=== PATIENT | female | born 1940 | race Caucasian/White ===

== ENCOUNTER → 2017-01-24 | Outpatient (CLI) | payer MEDICARE ==
[~2017-01-24] MED LIST: ASCO100037 PO; B-COCAP5 PO; CALC-127 PO; CHOL1CAP6 PO; CHRO1CAP7 PO; CODCAP9 PO; ESTR.3 PO; GLUC1CAP16 PO; HYDR-3535 PO; MILK200C2 PO; NAPR220C22 PO; OMEP20TA PO; PERF25TA PO; TURM500C4 PO; VITA-136 PO
== END ==
LOC: CPRE 11:56
PROVIDERS: ATTEND Neurological Surgery
DX: Z01.818 Encounter for other preprocedural examination (principal); M43.16 Spondylolisthesis, lumbar region; M51.16 Intervertebral disc disorders with radiculopathy, lumbar region; M12.88 Other specific arthropathies, not elsewhere classified, other specified site; M48.06 Spinal stenosis, lumbar region; M51.36 Other intervertebral disc degeneration, lumbar region

== ENCOUNTER → 2017-01-26 | Day surgery (SDC) | payer MEDICARE ==
--- NOTE | 2017-01-25 13:43 | MH ---
cc: ANNE-MARIE CLEMENTS M.D., ROHIT K. M.D. DATE OF ADMISSION: 01/26/2017 ADMISSION DIAGNOSIS Lumbar spinal stenosis. HISTORY OF PRESENT ILLNESS This is a 76-year-old female who we initially saw in June 2014 when she presented for an evaluation of left knee paresthesias and occasional electrical sensation in the left anterior leg since 2013. She also had at that time right leg pain and this has progressively gotten worse over the years. It has really gotten bad in the last year. She states when sitting the pain gets worse. She has pain in the right buttocks into the posterior lateral thigh with associated paresthesias. She states that the pain stops at the knee; however, the paresthesias do extend into the posterior calf. She states that she still has paresthesias in the left leg of about the same intensity. She denies much back pain. She states that she does exercises on her back daily and works out twice a week. She denies any weakness in the lower extremities. No bowel or bladder incontinence. PAST MEDICAL/SURGICAL HISTORY 1. Gastroesophageal reflux disease. 2. Cataract extraction in 2008. 3. Tonsillectomy in 1948. 4. Hysterectomy in 2005. 5. Tubal ligation in 1976. 6. Right knee arthroplasty in 2010. FAMILY HISTORY Father is at 85 of heart disease. Mother is at 85 of heart disease. Sister is alive at 77 years old with history of cancer. Another sister is alive at 76 years old with depression. CURRENT MEDICATIONS 1. Vitamin E 400 units p.o. daily. 2. Omeprazole 20 mg p.o. daily, 3. Milk thistle seed extract 200 mg p.o. daily. 4. Glucosamine chondroitin p.o. daily. 5. Cod liver oil 1250 mg p.o. daily. 6. Vitamin D3 1000 units p.o. daily. 7. Carbinol iron 25 mg p.o. daily. 8. Calcium/magnesium/vitamin D 2 tablets p.o. daily. 9. Vitamin B complex p.o. daily. 10. Vitamin C 1000 mg p.o. daily. 11. Naproxen 220 mg p.o. daily. 12. Premarin 0.3 mg p.o. daily. MEDICATIONS ON HOLD 1. Naproxen placed on hold prior to surgical intervention. 2. Vitamin E was also placed on hold prior to surgical intervention. 3. The glucosamine chondroitin was placed on hold prior to surgical intervention. 4. Cod liver oil was placed on hold prior to surgical intervention. 5. Mild thistle seed extract was placed on hold prior to surgical intervention. ALLERGIES SHE IS ALLERGIC TO SULFA. SOCIAL HISTORY She quit smoking 18 years ago. She drinks 0 to 2 drinks of alcohol per day. Denies any substance abuse. REVIEW OF SYSTEMS CONSTITUTIONAL: Denies any fever or chills and. EARS, NOSE, AND THROAT: No pharyngitis, exudates or bloody drainage from the nose. CARDIOVASCULAR: She denies any chest pain or palpitations. RESPIRATORY: Positive for shortness of breath. GASTROINTESTINAL: No nausea, vomiting or abdominal pain. GENITOURINARY: No dysuria or hematuria. MUSCULOSKELETAL: Positive for leg pain. No low back pain. SKIN: No rashes or pruritus. NEUROLOGIC: No difficulty with speech or memory. ENDOCRINE: No polyuria or polydipsia. HEMATOLOGIC: No bruising or bleeding tendencies. PHYSICAL EXAMINATION HEAD: Normocephalic, atraumatic. NECK: Supple. No carotid bruits heard on auscultation. LUNGS: Clear to auscultation bilaterally. HEART: Regular rate and rhythm. Normal S1 and S2. ABDOMEN: Soft, nontender. Positive bowel sounds. SKIN: No cyanosis or erythema. MUSCULOSKELETAL: She has 5/5 strength in the lower extremities. NEUROLOGIC: She is awake, alert and oriented. Cranial nerves II-XII are grossly intact. Her speech is fluent. Comprehension is good. EXTREMITIES: Left Achilles' reflex is absent. DATA Reviewed an MRI from June 10, 2016, which reveals severe L3-L4 spinal stenosis from facet and ligamentum flavum hypertrophy along with a grade 1 spondylolisthesis and disk degeneration with disk height collapse and endplate changes. She also has moderate stenosis at the L4-L5 level, especially the lower right foraminal and lateral recess as well as severe disk degeneration with disk height collapse. There is also disk degeneration at the L1/L2 although the stenosis is mild. PLAN We have discussed the treatment options with the patient which include continued conservative measures versus surgical intervention. We have recommended the surgery would entail an L3/L4 and L4/L5 decompressive laminectomy through a microsurgical approach. We have discussed the procedure as well as the risks, benefits, alternatives and recovery time in great detail with the patient. We have discussed the risks involved with surgery to include but not be limited to bleeding, infection, muscle weakness, voice hoarseness, difficulty swallowing, heart attack, stroke, blood clots, scar tissue formation among others. The patient states that she understands the procedure as well as the risks and she was therefore scheduled accordingly. Dictated by: Thiago Stevens PA-C MD MATY Hollis/TUAN /1:05 PM /1:21 PM
[~2017-01-26] MED LIST changes: +ACETAMINOPHEN 1000 MG/100 ML 100 ML IV ONE; +BUPIVACAINE/EPINEPHRINE 0.5% 50 ML VIAL ONE; +CHLORHEXIDINE GLUCONATE 2 % 1 PACK (2 CLOTHS) TOPICAL PRN; +DEXAMETHASONE SOD PHOS 4 MG/ML VIAL ONE; +DO NOT ADM ANY ANTICOAGULANT DRUGS PRN; +FAMOTIDINE 20 MG/2 ML VIAL ONE; +GELFOAM SIZE 100 ONE; +INSULIN HUMAN REGULAR 1,000 UNITS/10 ML VIAL SQ PRN; +LACTATED RINGER'S 1000 ML IV PRN; +METOPROLOL TARTRATE 25 MG TAB PO PRN; +MIDAZOLAM HCL 2 MG/2 ML VIAL ONE; +NEOSTIGMINE 3 MG/3 ML SYR IV ONE; +ONDANSETRON HCL 4 MG/2 ML VIAL IV PUSH ONE; +PHENYLEPH/NS 1000 MCG/10 ML SYR IV ONE; +POVIDONE IODINE 5% (ANTISEPSIS KIT) 4 APPLICATIONS EACH NARE PRN; +PROPOFOL 200 MG/20 ML AMP IV ONE; +SODIUM CHLOR 0.9% 1000 ML INJ 1,000 ML IV SCH; +SODIUM CHLORID 0.9% 500 ML IV PRN; +THROMBIN (TOPICAL) 5,000 UNIT VIAL ONE; +VANCOMYCIN 1,000 MG/NS 250ML (for <70 kg) IV SCH; +VANCOMYCIN HCL 1000 MG VIAL ONE; +ePHEDrine/NS 25 MG/5 ML SYR IV ONE; +methylPREDNISolone ACETATE 40 MG/ML VIAL ONE
--- NOTE | 2017-01-26 13:54 | PD.OP ---
Nu Yepez MD Operative Report Date of Surgery: Jan 26, 2017 Preoperative Diagnosis: Intractable low back pain with neurogenic claudication; severe L3-4 and L4-5 spinal stenosis from facet and ligamentum flavum hypertrophy with associated L3- 4 spondylolisthesis Postoperative Diagnosis: Same Procedure: Bilateral L3, L4 and L5 decompressive laminectomies with medial facetectomy; microsurgical technique Anesthesia: Gen. endotracheal by Buffy Lee Surgeon: Placido Sylvester M.D. Analytical Data Scientist(s): Kira Plascencia Operation and Findings: Following administration of general endotracheal anesthesia, patient received vancomycin 1 g intravenously. Galloway catheter placed along with Sequential compression devices were placed for DVT prophylaxis. She was then turned in prone position on Judson frame and the Lio table and all pressure points adequately padded. The lumbar region was then shaved and prepped with a Betadine and ChloraPrep. Sterile draping undertaken with Ioban. Midline incision overlying the L3-L5 levels was then made after infiltrating the skin with 0.5% Marcaine with epinephrine solution. The skin incision was made extending down through the fascia and then using the subperiosteal plane on the right side the muscular attachments to the spinous process and lamina were detached. Intraoperative fluoroscopy was used for level confirmation and further dissection undertaken using microtechnique with microscope magnification. The inferior portion of the right L3 lamina, right L4 lamina, and superior portion right L5 lamina was then drilled out and the underlying ligamentum flavum also removed. There was a thickened facet arthropathy noted in the medial portion of facet was also resected and the lateral recess decompressed. There was severe spinal stenosis at the L3-4 level with hypertrophied facet the ligamentum flavum which was adherent to the dura but this was peeled off without any dural perforation or CSF leak. There was also significant L4-5 stenosis and circumferential L3 to L5 decompression was undertaken with gentle thecal sac retraction from the right side to decompress the lateral recesses and hypertrophied medial facet and ligamentum flavum on the left side also. The left-sided lamina and interspinous ligaments were preserved to reduce risk of instability given that she had L3-4 degenerative spondylolisthesis. Epidural venous stasis which he with the bipolar cautery along with Gelfoam and thrombin and bone wax used at the laminotomy edges for hemostasis. The retractors removed and the muscle fascia proximal using 2-0 Vicryl interrupted stitches. 3-0 Vicryl subcuticular stitches were also placed in an interrupted fashion and planned skin closure was with Mastisol and Steri- Strips. A sterile dressing was then applied and the patient then turned in the supine position and extubated and taken to recovery room in stable condition. The Galloway catheter was removed at the end of the case. There were no intraoperative complications and all sponge and needle count was correct at the end of the procedure. Estimated blood loss about 200 cc. Placido Sylvester MD Jan 26, 2017 13:54
--- NOTE | 2017-01-26 14:33 | RADRPT ---
EXAM DATE/TIME: 01/26/2017 10:27 [facility] COMPARISON: No previous studies available for comparison. INDICATIONS : L3-L4 L4-L5 laminectomy level localization. MEDICAL HISTORY : None. SURGICAL HISTORY : Left knee. ENCOUNTER: Initial ACUITY: 1 day PAIN SCORE: Non-responsive. LOCATION: lumbar FINDINGS: Metallic probe is directed back L3 and L5. CONCLUSION: Marking as above. Arley Kumar MD FACR on January 26, 2017 at 14:31 Board Certified Radiologist. This report was verified electronically.
[2017-01-26 14:45] VITALS: BP 129/71; PULSE 89; RESP 20; TEMP 97.5; O2SAT 97
== END | disposition home or self-care (01) ==
LOC: HSDC 06:25
PROVIDERS: ATTEND Neurological Surgery
DX: M48.06 Spinal stenosis, lumbar region (principal); M43.16 Spondylolisthesis, lumbar region; M51.16 Intervertebral disc disorders with radiculopathy, lumbar region; M51.36 Other intervertebral disc degeneration, lumbar region; M79.604 Pain in right leg; K21.9 Gastro-esophageal reflux disease without esophagitis; Z87.891 Personal history of nicotine dependence
CPT/HCPCS: 00630; 63047; 63048; 72020; 76000; J0131; J1030; J1100; J2250; J2370; J2405; J2710; J3010; J3370; J7050; J7120